=== PATIENT | female | born 1975 | race Caucasian/White ===

== ENCOUNTER → 2017-03-10 | Outpatient (CLI) | payer BC ==
[~2017-03-10] MED LIST: ARMOUR THYROID180 MG PO; Armour Thyroid PO; COLACE100 MG PO; DAILY MULTIPLE1 EACH PO; DAILY MULTIVIT1 EAC4 PO; ENDOCET 5-3251 EACH PO; Feosol PO; HUMULIN N100 UNIT/2 SC; HYOPHEN TABLET1 EACH PO; IBUPROFEN800 MG PO; LEVOCETIRIZINE D5 MG PO; Motrin PO; NOVOLOG 10100 UNITS/ SC; PRO BIOTIC PO; SINGULAIR10 MG PO; SPRINTEC1 EACH PO; Theragran PO; Tylenol/Codeine #3 PO; Vitamin B Complex PO; ZYRTEC10 M3 PO
== END | disposition home or self-care (01) ==
LOC: CDC 08:31
DX: E66.01 Morbid (severe) obesity due to excess calories (principal)
CPT/HCPCS: 93000

== ENCOUNTER → 2017-03-15 | Outpatient (CLI) | payer BC ==
[~2017-03-15] VITALS: Ht 165.1 cm; Wt 60.3 kg
== END | disposition home or self-care (01) ==
LOC: AMB 14:00
PROC: 0DJ08ZZ Inspection of Upper Intestinal Tract, Via Natural or Artificial Opening Endoscopic (ICD-10-PCS; principal; 2017-03-15)
DX: K29.70 Gastritis, unspecified, without bleeding (principal); K21.9 Gastro-esophageal reflux disease without esophagitis; Z86.14 Personal history of Methicillin resistant Staphylococcus aureus infection; E07.9 Disorder of thyroid, unspecified; Z87.891 Personal history of nicotine dependence; E66.01 Morbid (severe) obesity due to excess calories; Z68.43 Body mass index [BMI] 50.0-59.9, adult; J30.9 Allergic rhinitis, unspecified